=== PATIENT | female | born 1980 | race Hispanic/Latino ===

== ENCOUNTER 2016-12-10 11:59 | Outpatient (CLI) | payer OTHER | END 2016-12-10 12:00 | disposition home or self-care (01) | LOC: LABLEX 11:59 | PROVIDERS: ATTEND Family Medicine | DX: R39.198 Other difficulties with micturition (principal) | CPT/HCPCS: 87086 ==

== ENCOUNTER 2017-07-07 08:21 | Emergency (ER) | payer OTHER ==
[2017-07-07 08:46] LABS: Bilirubin Negative (Negative); Blood, Urine Trace (Negative); Clarity Cloudy (Clear); Glucose, Urine (Dipstick) Negative (Negative); Leukocyte Large (Negative); Nitrite Negative (Negative); Protein, Urine (Dipstick) Negative (Neg-Trace); Urobilinogen 0.2 mg/dL (0.2-1.0); pH, Urine 7.5 (5.0-9.0)
[2017-07-07 08:47] LABS: #Basophils 0.1 thou/uL (0.0-0.2); #Lymphocytes 1.5 thou/uL (1.20-3.40); #Monocytes 0.5 thou/uL (0.11-0.59); #Neutrophils 5.9 thou/uL (1.40-6.50); %Basophils 0.8 % (0.0-1.0); %Eosinophils 0.4 % (0.0-10.0); %Lymphocytes 19.4 % (21.0-51.0); %Monocytes 5.7 % (0.0-10.0); %Neutrophils 73.7 % (42.0-75.0); Hemoglobin 12.8 g/dL (12.0-16.0); Mean Corpuscular HGB CONC 33.4 g/dL (32.0-36.0); Mean Corpuscular Hemoglobin 29.7 pg (27.0-31.0); Mean Corpuscular Volume 88.9 fl (81.0-99.0); Mean Platelet Volume 7.8 fL (7.4-10.4); Platelet Count 226 thou/uL (130-400); RBC Distribution Width 13.7 % (11.5-14.5); Red Blood Cell (RBC) Count 4.33 mill/uL (4.20-5.40); White Blood Cell (WBC) Count 7.9 thou/uL (4.8-10.8)
[2017-07-07 08:50] LABS: Bacteria/HPF 1+ HPF (None Seen); RBC/HPF 0-3 HPF (0-3); Squamous Epithelial 0-3 HPF (0-3); WBC/HPF 21-50 HPF (0-3)
== END 2017-07-07 09:47 | disposition home or self-care (01) ==
LOC: BURERS 08:21
DX: O23.41 Unspecified infection of urinary tract in pregnancy, first trimester (principal)
CPT/HCPCS: 81003; 81015; 84702; 85025; 86900; 86901; 99284